=== PATIENT | female | born 1930 | race Caucasian/White ===

== ENCOUNTER 2018-07-10 16:17 | Inpatient (IN) | payer MEDICARE ==
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
[2018-07-10 17:47] LABS: ABS Basophils 0.1 10^3/ul (0-0.2); ABS Eosinophils 0.2 10^3/ul (0-0.6); ABS Lymphocytes 2.3 10^3/ul (1.0-4.8); ABS Monocytes 0.8 10^3/ul (0-0.8); ABS Neutrophils 6.1 10^3/ul (1.5-7.7); ABS Nucleated RBC 0 10^3/ul; Eosinophil % 2.1 %; Hematocrit 38 % (35-47); Hemoglobin 12.8 g/dl (12.0-16.0); Lymphocyte % 24.4 %; Mean Corpuscular HGB Conc 34 g/dl (31-36); Mean Corpuscular Hemoglobin 31 pg (27-31); Mean Corpuscular Volume 91 fL (80-97); Mean Platelet Volume 7.3 fL (7.4-10.4); Nucleated Red Blood Cells % 0; Platelet Count 270 10^3/ul (150-450); Red Blood Count 4.19 10^6/ul (4.00-5.40); Red Cell Distribution Width 13 % (10.5-15); White Blood Count 9.4 10^3/ul (3.5-10.8)
[2018-07-10 18:05] LABS: Albumin 4.1 g/dL (3.2-5.2); Albumin/Globulin Ratio 1.5 (1-3); BUN/Creatinine Ratio 27.2 (8-20); Calcium 9.1 mg/dL (8.6-10.3); EGFR African American 80.7 (>60); EGFR Non-African American 66.7 (>60); Globulin 2.8 g/dL (2-4); Potassium 4.1 mmol/L (3.5-5.0); Total Bilirubin 0.4 mg/dL (0.2-1.0); Total Protein 6.9 g/dL (6.4-8.9)
[2018-07-10 18:06] LABS: Troponin I 0.01 ng/mL (<0.04)
[2018-07-10 18:37] LABS: Urine Appearance Clear; Urine Bilirubin Negative (Negative); Urine Blood Negative (Negative); Urine Color Yellow; Urine Glucose Negative (Negative); Urine Ketones Negative (Negative); Urine Nitrite Negative (Negative); Urine Protein Negative (Negative); Urine Specific Gravity 1.008 (1.010-1.030); Urine Urobilinogen Negative (Negative)
[2018-07-10] MEDS: Meloxicam(NF) 7.5 MG TAB PO ONE (21:42)
--- NOTE | 2018-07-10 21:45 | CONSULT ---
Consult Consult: Orthopedic Surgery Consultation Date: 07/10/2018 Requesting Service: ER Chief Complaint: Left hip pain. History: 87-year-old woman with dementia, who lives at [facility]. She is accompanied by her daughter. Earlier today she sustained a mechanical fall onto her left side. She complained of left hip pain and inability to ambulate, so was brought to the emergency room. She does report some mild left shoulder pain since the fall as well. The pain is located at the left anterior hip and is constant moderate, sharp. Pain worse with hip ROM and lessened when rested. Review of Systems: Negative for fever, recent visual changes, difficulty swallowing, chest pain, shortness of breath, abdominal pain, hematuria, easy bruising, diffuse weakness or lack of coordination, and diffuse rash. PMH: dementia, hyperlipidemia, HTN, ME Medications: aspirin, Ramipril, donepezil, rosuvastatin, memantine Allergies: scallops SH: Lives at [facility] in assisted living. No tobacco or alcohol. FH: non-contributory Physical Examination: Constitutional: Temp Pulse Resp BP Pulse Ox 98.0 F 55 16 159/82 99 07/10/18 16:34 07/10/18 16:34 07/10/18 16:34 07/10/18 16:34 07/10/18 16:34 General appearance is healthy and non-septic in no acute distress. Cardiovascular: Pulse examination demonstrates positive pedal pulses with brisk capillary refill. There are no varicosities. Abdomen: Soft and nontender Lymphatic: No lymphadenopathy appreciated. Skin: Bilateral upper and lower extremity examination demonstrates no ulcerative lesions. Psychiatric / Neurological: Appropriate affect. Alert and oriented to person, place. There is no significant abnormality in coordination appreciated. Normoreflexive deep tendon reflex of the affected extremity. Musculoskeletal: Right upper extremity and lower extremity show full range of motion with no evidence of instability and no tenderness with palpation and 5/5 strength. There is no gross deformity. She is able to range the left shoulder, elbow and wrist but does have some mild pain of the left shoulder. No focal tenderness about the shoulder. No tenderness at the elbow or wrist. She is neurovascularly intact distally in the left upper extremity. At the pelvis she does have some tenderness at the left pubic rami. No pain with hip range of motion. Skin intact. 5/5 motor strength distally with intact sensation to light touch There is no global swelling, edema, or varicosities. No TTP at knee, lower leg, ankle, foot Palpable DP pulse. Flexes and extends ankle and toes. Imaging: X-rays were obtained, and independently interpreted and show left superior and inferior pubic rami fractures. Impression and Plan: Left LC1 pelvic fractures. We discussed the diagnosis and prognosis at length. She can be weightbearing as tolerated with a walker. I would like to obtain new x-rays when she is walking. I would also recommend left shoulder x-rays. Nikunj Porter MD
[2018-07-10] MEDS ORDERED: Ondansetron INJ* 2 MG/ML VIAL IV PRN (23:06)
[2018-07-10] MEDS ORDERED: oxyCODONE TAB* 5 MG TAB PO PRN (23:10)
--- NOTE | 2018-07-11 04:46 | HP ---
CC: Dr. Linda Kothari; Dr. Nikunj Porter * ADMISSION HISTORY AND PHYSICAL: DATE OF ADMISSION: 07/10/18 PRIMARY CARE DOCTOR: Dr. Linda Kothari. MY ATTENDING WHILE IN THE HOSPITAL: Dennis Briceno MD * (DICTATED BY CAMILLE ARREOLA) CONSULTING PHYSICIAN: Nikunj Porter MD CHIEF COMPLAINT: Fall, left groin pain, left shoulder pain. HISTORY OF PRESENT ILLNESS: Ms. William is an 87-year-old female with relatively advanced dementia as well as hypertension and a history of OK, who presents to the emergency department after a mechanical fall on her left side and inability to ambulate, she came in by EMS. She had left shoulder pain and left groin pain , which was worse with movement and not present when patient is not moving. The patient has been in her normal state of health. The patient has no recent changes in her medications. The patient denies dysuria, chest pain, shortness of breath, abdominal pain, diarrhea, dehydration, weight loss, fevers, chills, exposure to people with the flu, cough, and wheezing. 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 Pelvis x- ray was interpreted by Dr. Nikunj Porter as showing left-sided pubic ramus fractures, inferior and superior. Dr. Porter states that patient would be weightbearing as tolerated and recommended shoulder x- rays. Shoulder x-rays were reviewed by this provider and showed no obvious fracture. The patient also had a lower extremity x-ray, which also shows no obvious fracture. Hip/pelvis x-ray shows obvious inferior and superior left pubic ramus fracture. Chest x-ray is unremarkable. We were asked to evaluate the patient for admission due to inability to ambulate and ramus fractures. PAST MEDICAL HISTORY: 1. Dementia. 2. Hypertension. 3. Hyperlipidemia. 4. OK. 5. Mastoiditis as a child. 6. Coronary artery disease. PAST SURGICAL HISTORY: PCI in 2006, and mastoid surgery as a child. MEDICATIONS: 1. Aspirin 81 mg p.o. daily. 2. CoQ10 1 tab p.o. daily. 3. Donepezil 5 mg p.o. daily. 4. Fish oil 1000 mg p.o. daily. 5. Probiotic 1 tab p.o. daily. 6. Ramipril 10 mg p.o. daily. 7. Rosuvastatin 20 mg p.o. daily. 8. Vitamin C 250 mg p.o. daily. 9. Vitamin D 3000 units p.o. daily. 10. Memantine 10 mg p.o. daily. 11. Tylenol 500 mg q.6 hours as needed. ALLERGIES: Scallops, Weeds. FAMILY HISTORY: The patient's father of throat cancer. The patient's mother of stroke. The patient's other sister has dementia and is alive. The patient's sister of colon cancer and a bother of lung cancer. SOCIAL HISTORY: The patient smoked in high school. The patient drank occasional alcohol until years ago. The patient denies illicit drug use. The patient works as a teacher and a barrett. The patient is and has four children. The patient's surrogate decision maker is her daughter, Chel William , who is with her today. REVIEW OF SYSTEMS: Was reviewed with the patient and her daughter and is negative except as above in the HPI. PHYSICAL EXAMINATION GENERAL: The patient is an 87-year-old female who appears her stated age and sitting comfortably in the bed, in no acute distress. VITAL SIGNS: At the time of evaluation, temperature 97.8, pulse rate 59, respiratory rate 20, oxygen saturation 97% on room air, and blood pressure 148/ 66. HEENT: Head: Normocephalic, atraumatic. Sclerae anicteric. No conjunctival injection. Nasal mucosa moist. Oral mucosa moist. No pharyngeal erythema, discharge, or exudate. NECK: Supple, nontender. No lymphadenopathy. No carotid bruits. No JVD. RESPIRATORY: Clear to auscultation bilaterally. No wheezes, rales, or rhonchi. Good air exchange bilaterally. CARDIAC: Regular rate and rhythm. No clicks, murmurs, gallops, or rubs. Pulses are 2+ in the dorsalis pedis, posterior tibialis, and radial areas. ABDOMEN: Soft, nontender, and nondistended. Bowel sounds present and normoactive in all 4 quadrants. No hepatosplenomegaly. No abdominal bruits auscultated. No hepatojugular reflux. MUSCULOSKELETAL: Tenderness to palpation over the left hip and groin. Tenderness to palpation over the scapula of left shoulder. Pain with manipulation of the left lower extremity. Pain with manipulation of the left upper extremity. GENITOURINARY: No suprapubic or CVA tenderness. SKIN: Clean, dry, and intact. No rashes. NEUROLOGIC: Cranial nerves II through XII intact. Alert and oriented only to self. The patient thinks it is 2014, does not know where she is now, does not know who the president is. Sensation and movement intact distal to the injury. PSYCHIATRIC: Very pleasant and cooperative. DIAGNOSTIC STUDIES/LAB DATA: White blood cell count 9.4, hemoglobin 12.8, and platelet count 270. Sodium 138, potassium 4.1, chloride 104, carbon dioxide 29 , anion gap 5, BUN 22, creatinine 0.81, glucose 102. Calcium 9.2, bilirubin 0.4 , AST 25, ALT 24, alkaline phosphatase 60. Troponin I is 0.01. Protein 6.9, albumin 4.1, globulin 2.8. Urine; yellow, clear, pH 8.0, specific gravity 1.008 , otherwise unremarkable. Studies: As above in the HPI plus electrocardiogram shows normal sinus rhythm. No ST segment elevations. No T wave changes. Normal axis. No hypertrophy or enlargement. Brain CT read as postoperative changes of left prior mastoidectomy versus an erosive process involving the left mastoid air cells. There is opacification of left mastoid air cells and possibly also left middle ear cavity, cannot exclude left otomastoiditis. There is age related atrophy with cerebellar volume loss and chronic microvascular ischemic change and no acute intracranial pathology. ASSESSMENT AND PLAN: Impression: Ms. William is an 87-year-old female with past medical history significant for dementia, hypertension, myocardial infarction, who had a mechanical fall today with left pubic superior and inferior ramus fractures and will be admitted to the hospital for physical therapy, occupational therapy, pain control, Orthopedic consultation, and likely rehab placement. 1. Left superior and inferior ramus fractures. The patient can be weightbearing as tolerated per Orthopedics. The patient is currently limited by pain. The patient's pain will be treated with oxycodone and Tylenol. The patient will have physical therapy and occupational therapy. The patient will likely need rehab placement before returning to independent living. The patient is in relatively good health and has high rehab potential. 2. Hypertension. The patient is currently normotensive. Continue the patient' s ramipril. 3. History of coronary artery disease. Continue patient's aspirin and rosuvastatin. 4. Dementia. Continue patient's memantine, donepezil and supportive care. Avoid excessive doses of psychoactive medications. 5. History of mastoiditis. The patient's mastoid abnormalities are likely related to her mastoid surgery as a child. 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 No antibiotics or further assessment is indicated. 6. DVT prophylaxis: SCDs in the setting of pelvic fracture as the patient moves further away from her trauma. Heparin subcu may be indicated. 7. FEN: The patient will have a heart-healthy diet without caffeine and no fluids are indicated. TIME SPENT: Approximately 60 minutes was spent on the admission of this patient , 30 of which was spent [id number] with the patient obtaining history and physical and discussing treatment plan. Plan was discussed with my attending Dr. Anthony Briceno and he is in agreement. CAMILLE ARREOLA [id number]/[facility] #: [id number] MTDKip
[2018-07-11 06:45] LABS: ABS Basophils 0 10^3/ul (0-0.2); ABS Eosinophils 0.1 10^3/ul (0-0.6); ABS Lymphocytes 1.6 10^3/ul (1.0-4.8); ABS Monocytes 0.9 10^3/ul (0-0.8); ABS Neutrophils 7.9 10^3/ul (1.5-7.7); ABS Nucleated RBC 0 10^3/ul; Eosinophil % 0.6 %; Hematocrit 36 % (35-47); Hemoglobin 12.2 g/dl (12.0-16.0); Mean Corpuscular HGB Conc 34 g/dl (31-36); Mean Corpuscular Hemoglobin 30 pg (27-31); Mean Corpuscular Volume 90 fL (80-97); Mean Platelet Volume 7.6 fL (7.4-10.4); Nucleated Red Blood Cells % 0; Platelet Count 240 10^3/ul (150-450); Red Blood Count 4.01 10^6/ul (4.00-5.40); Red Cell Distribution Width 13 % (10.5-15); White Blood Count 10.5 10^3/ul (3.5-10.8)
[2018-07-11 07:04] LABS: BUN/Creatinine Ratio 29.3 (8-20); Calcium 8.7 mg/dL (8.6-10.3); EGFR African American 118.7 (>60); EGFR Non-African American 98.1 (>60); Magnesium 2.1 mg/dL (1.9-2.7); Potassium 3.6 mmol/L (3.5-5.0)
[2018-07-11] MEDS: Cholecalciferol TAB* 1000 UNITS PO SCH (08:40)
[2018-07-11] MEDS: Atorvastatin* 40 MG TAB PO SCH (08:41)
[2018-07-11] MEDS: Memantine TAB* 10 MG PO SCH ×2 (08:41→19:47)
[2018-07-11] MEDS: Acetaminophen TAB* 325 MG PO PRN ×2 (08:43→19:47)
[2018-07-11] MEDS: Ramipril CAP* 10 MG PO SCH (08:43)
[2018-07-11] MEDS: Donepezil TAB* 5 MG PO SCH (08:43)
[2018-07-11] MEDS: Aspirin EC TAB* 81 MG TAB.EC PO SCH (08:44)
--- NOTE | 2018-07-11 13:50 | PN ---
Progress Note - Progress Note Date of Service: 07/11/18 SOAP: Subjective: [] Patient seen and examined OOB in chair with family present. She has no pain and no other complaints. She was stood and pivot, does not recall any pain. Per her family, her short term memory is very poor. Denies CP,SOB, dizziness, nausea. Objective: []General:Well appearing, NAD LLE: skin envelope intact, able to flex and extend at hip,knee,ankle without pain. BL UE: nontender to palpation, .aAble to forward flex BL upper extremities above her head without pain. Assessment: []left superior and inferior pubic rami fractures. Diagnostic studies:Left shoulder xray: Negative for fracture. Normal acromioclavicular and glenohumeral joint alignment. 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 Negative for calcific tendinopathy.Unremarkable soft tissue contours. Plan: []BL LE: weightbearing as tolerated with a walker. Needs new pelvis x-rays when she is walking. UE: WBAT
--- NOTE | 2018-07-11 14:25 | PN ---
Subjective Date of Service: 07/11/18 Interval History: Pt in room accompanied by 2 daughters. She is confused at times, so daughters fill in information. Pt had an unwitnessed fall which resulted in L pubic ramus fracture. She does not remember the fall. Currently, she denies pain. Daughters say that pt c/o pain when standing and transferring to commode and state that pt tends to favor the L leg. Pt denies CP, cough, SOB, fever, abd pain, pain in calves. Objective Active Medications: Acetaminophen (Tylenol Tab*) 650 mg PO Q6H PRN Aspirin (Aspirin Ec Tab*) 81 mg PO DAILY CHIKI Atorvastatin Calcium (Lipitor*) 40 mg PO DAILY CHIKI Cholecalciferol (Vitamin D Tab*) 2,000 units PO DAILY CHIKI Donepezil HCl (Aricept Tab*) 5 mg PO DAILY CHIKI Meloxicam (Mobic(Nf)) 15 mg PO ONCE ONE Memantine (Namenda Tab*) 10 mg PO BID CHIKI Ondansetron HCl (Zofran Inj*) 4 mg IV Q6H PRN Oxycodone HCl (Roxycodone Tab*) 5 mg PO Q6H PRN Ramipril (Altace Cap*) 10 mg PO DAILY CHIKI Vital Signs: Temp Pulse Resp BP Pulse Ox 97.7 F 77 18 145/59 94 07/11/18 11:27 07/11/18 11:27 07/11/18 11:27 07/11/18 11:27 07/11/18 11:27 Oxygen Devices in Use Now: None Appearance: Pt is sitting in chair with LE elevated. She is in no acute distress and appears comfortable. Eyes: No Scleral Icterus, PERRLA Ears/Nose/Mouth/Throat: NL Teeth, Lips, Gums, Clear Oropharnyx, Mucous Membranes Moist Neck: NL Appearance and Movements; NL JVP, Trachea Midline Respiratory: Symmetrical Chest Expansion and Respiratory Effort, Clear to Auscultation Cardiovascular: NL Sounds; No Murmurs; No JVD, RRR, No Edema Abdominal: NL Sounds; No Tenderness; No Distention, No Hepatosplenomegaly Extremities: No Edema, No Clubbing, Cyanosis, - - Pt able to move b/l UE; pt able to move b/l LE: int/ext rotation, hip and knee flexion/extension. Neurological: - - Alert, oriented to self and place Result Diagrams: 07/11/18 06:26 07/11/18 06:26 Microbiology and Other Data: Microbiology 07/11/18 01:13 Nasal Screen MRSA (PCR) - Final Nasal Mrsa Not Detected Assess/Plan/Problems-Billing Assessment: Pt is 87yof with PMHx HTN, CAD, dementia who presents with L superior and inferior pubic ramus fracture. - Patient Problems (1) Fracture of left pelvis Comment: -Ortho consulted, thank you for receommendations -LE: WBAT with wheelchair, new pelvis x-ray after pt walking -Continue pain control (2) Hypertension Comment: -Elevated this morning, but trending downward, ? due to pain -Continue Ramipril -Continue to monitor over next 24h for need for med adjustment (3) Coronary artery disease Comment: -Continue statin, asa (4) Dementia Comment: -Stable -Continue memantine, donepezil (5) DVT prophylaxis Comment: -Recent fall -SCDs Status and Disposition: Inpatient. Discharge when stable.
[2018-07-11] MEDS: Meloxicam(NF) 7.5 MG TAB PO ONE (19:22)
[2018-07-12] MEDS: Acetaminophen TAB* 325 MG PO PRN ×3 (03:47→19:43)
[2018-07-12] MEDS: Ramipril CAP* 10 MG PO SCH (10:25)
[2018-07-12] MEDS: Aspirin EC TAB* 81 MG TAB.EC PO SCH (10:25)
[2018-07-12] MEDS: Donepezil TAB* 5 MG PO SCH (10:25)
[2018-07-12] MEDS: Atorvastatin* 40 MG TAB PO SCH (10:25)
[2018-07-12] MEDS: Memantine TAB* 10 MG PO SCH ×2 (10:25→19:43)
[2018-07-12] MEDS: Cholecalciferol TAB* 1000 UNITS PO SCH (10:25)
--- NOTE | 2018-07-12 13:49 | PN ---
Progress Note - Progress Note Date of Service: 07/12/18 SOAP: Subjective: []Patient seen at bedside. She does not remember meeting me nor that she has pubic rami fractures. Denies any pain currently. Per family she has not been complaining of pain. Denies CP, SOB, dizziness, nausea currently. Objective: [] General:Well appearing, NAD LLE: skin envelope intact, thigh is soft, able to flex and extend at hip,knee, ankle without pain. Sensation intact to light touch distally, Dp2+. BL UE: nontender to palpation, qble to forward flex BL upper extremities above her head without pain. Assessment: []left superior and inferior pubic rami fractures. Plan: []BL LE: weightbearing as tolerated with a walker. Needs new pelvis x-rays when she is walking. Ordered for tomorrow UE: WBAT
[2018-07-12] MEDS: Ibuprofen TAB* 600 MG PO PRN (15:58)
[2018-07-12] MEDS ORDERED: NS 0.9% 1000 ML** 1,000 ML IV SCH (16:15)
--- NOTE | 2018-07-12 18:53 | PN ---
Subjective Date of Service: 07/12/18 Interval History: Pt states that she has no pain at the moment. She states she has no pain with ambulation, but daughters note that she does have pain with standing and ambulation; pt is confused at times. She is eating and drinking well and is in good spirits. Pt states her last BM was yesterday. She denies CP, SOB, cough, fever, abd pain, n/v/d, pain in calves. Objective Active Medications: Acetaminophen (Tylenol Tab*) 650 mg PO Q6H PRN Aspirin (Aspirin Ec Tab*) 81 mg PO DAILY [facility] Atorvastatin Calcium (Lipitor*) 40 mg PO DAILY [facility] Cholecalciferol (Vitamin D Tab*) 2,000 units PO DAILY [facility] Donepezil HCl (Aricept Tab*) 5 mg PO DAILY [facility] Sodium Chloride (Ns 0.9% 1000 Ml) 1,000 mls @ 75 mls/hr IV PER RATE [facility] Ibuprofen (Motrin Tab*) 600 mg PO Q6H PRN Memantine (Namenda Tab*) 10 mg PO BID [facility] Ondansetron HCl (Zofran Inj*) 4 mg IV Q6H PRN Oxycodone HCl (Roxycodone Tab*) 5 mg PO Q6H PRN Ramipril (Altace Cap*) 10 mg PO DAILY [facility] Vital Signs: Temp Pulse Resp BP Pulse Ox 97.7 F 55 14 143/58 96 07/12/18 12:43 07/12/18 12:43 07/12/18 12:43 07/12/18 12:43 07/12/18 12:43 Oxygen Devices in Use Now: None Appearance: Pt is sitting up in bed eating lunch. She is in no acute distress and appears well. Ears/Nose/Mouth/Throat: NL Teeth, Lips, Gums, Clear Oropharnyx, Mucous Membranes Moist Neck: NL Appearance and Movements; NL JVP, Trachea Midline Respiratory: Symmetrical Chest Expansion and Respiratory Effort, Clear to Auscultation Cardiovascular: NL Sounds; No Murmurs; No JVD, RRR, No Edema Abdominal: NL Sounds; No Tenderness; No Distention, No Hepatosplenomegaly Extremities: No Edema, No Clubbing, Cyanosis, - - Pt moves all extremities without difficulty or pain; radial and pedal pulses palpable Neurological: - - Alert; oriented to self, place Result Diagrams: 07/11/18 06:26 07/11/18 06:26 Microbiology and Other Data: Microbiology 07/11/18 01:13 Nasal Screen MRSA (PCR) - Final Nasal Mrsa Not Detected Assess/Plan/Problems-Billing Assessment: Pt is 87yof with PMHx HTN, CAD, dementia who presents with L superior and inferior pubic ramus fracture. - Patient Problems (1) Fracture of left pelvis Comment: -Ortho consulted, thank you for recommendations -LE: WBAT with wheelchair, new pelvis x-ray scheduled for tomorrow -Continue pain control (2) Hypertension Comment: -Elevated this morning, but trending downward, ? due to pain -Continue Ramipril -Continue to monitor over next 24h for need for med adjustment (3) Coronary artery disease Comment: -Continue statin, asa (4) Dementia Comment: -Stable -Continue memantine, donepezil (5) DVT prophylaxis Comment: -Recent fall -SCDs Status and Disposition: Inpatient. Discharge when stable.
[2018-07-13] MEDS: Ibuprofen TAB* 600 MG PO PRN ×2 (03:27→13:03)
[2018-07-13 07:03] LABS: Hematocrit 35 % (35-47); Mean Corpuscular HGB Conc 34 g/dl (31-36); Mean Corpuscular Hemoglobin 31 pg (27-31); Mean Corpuscular Volume 90 fL (80-97); Mean Platelet Volume 7.4 fL (7.4-10.4); Platelet Count 214 10^3/ul (150-450); Red Blood Count 3.91 10^6/ul (4.00-5.40); Red Cell Distribution Width 13 % (10.5-15); White Blood Count 9.5 10^3/ul (3.5-10.8)
[2018-07-13 07:23] LABS: BUN/Creatinine Ratio 28.6 (8-20); Calcium 8.5 mg/dL (8.6-10.3); EGFR African American 107.9 (>60); EGFR Non-African American 89.2 (>60); Potassium 3.9 mmol/L (3.5-5.0)
[2018-07-13] MEDS ORDERED: NS 0.9% 1000 ML** 1,000 ML IV SCH ×2 (08:00→09:00)
[2018-07-13] MEDS ORDERED: Metoprolol Tartrate TAB* 25 MG PO SCH (09:00)
[2018-07-13] MEDS: Memantine TAB* 10 MG PO SCH ×2 (09:11→20:14)
[2018-07-13] MEDS: Aspirin EC TAB* 81 MG TAB.EC PO SCH (09:11)
[2018-07-13] MEDS: Cholecalciferol TAB* 1000 UNITS PO SCH (09:11)
[2018-07-13] MEDS: Atorvastatin* 40 MG TAB PO SCH (09:11)
[2018-07-13] MEDS: Donepezil TAB* 5 MG PO SCH (09:11)
[2018-07-13] MEDS: Ramipril CAP* 10 MG PO SCH (09:11)
--- NOTE | 2018-07-13 11:40 | PN ---
Progress Note - Progress Note Date of Service: 07/13/18 SOAP: Subjective: []Pt seen at bedside. She has no pain at rest, has pain with ambulation but does not remember. Objective: []General:Well appearing, NAD LLE: skin envelope intact, thigh is soft, able to flex and extend at hip,knee, ankle without pain. Negative log roll at hip. Sensation intact to light touch distally, Dp2+. Assessment: []left superior and inferior pubic rami fractures. Plan: []BL LE: weightbearing as tolerated with a walker. Needs new pelvis x-rays now that she is ambulating. Ordered for today, anticipate DC tomorrow morning
--- NOTE | 2018-07-13 16:18 | PN ---
Subjective Date of Service: 07/13/18 Interval History: Pt is doing well. She states she does not have any pain, although her daughter reports that she does have pain with ambulation. Daughter states that she has been working with PT and has been progressing with exercises, including doing leg lifts, but still shuffles to commode, due to pain. She also believes that alternating Tylenol and Ibu has provided better pain control. Pt is doing well , otherwise, stating that she has no CP, SOB, fever, cough, abd pain, calf pain. She had BM yesterday and is urinating well. Objective Active Medications: Acetaminophen (Tylenol Tab*) 650 mg PO Q6H PRN Aspirin (Aspirin Ec Tab*) 81 mg PO DAILY [facility] Atorvastatin Calcium (Lipitor*) 40 mg PO DAILY [facility] Cholecalciferol (Vitamin D Tab*) 2,000 units PO DAILY [facility] Donepezil HCl (Aricept Tab*) 5 mg PO DAILY [facility] Sodium Chloride (Ns 0.9% 1000 Ml) 1,000 mls @ 75 mls/hr IV PER RATE [facility] Ibuprofen (Motrin Tab*) 600 mg PO Q6H PRN Memantine (Namenda Tab*) 10 mg PO BID [facility] Ondansetron HCl (Zofran Inj*) 4 mg IV Q6H PRN Oxycodone HCl (Roxycodone Tab*) 5 mg PO Q6H PRN Ramipril (Altace Cap*) 10 mg PO DAILY [facility] Vital Signs: Temp Pulse Resp BP Pulse Ox 98.2 F 60 18 122/50 96 07/13/18 14:18 07/13/18 14:18 07/13/18 15:31 07/13/18 14:18 07/13/18 14:18 Oxygen Devices in Use Now: None Appearance: Pt is sitting in chair with LE elevated. She appears comfortable and in no acute distress. Eyes: No Scleral Icterus, PERRLA Ears/Nose/Mouth/Throat: NL Teeth, Lips, Gums, Clear Oropharnyx, Mucous Membranes Moist Neck: NL Appearance and Movements; NL JVP, Trachea Midline Respiratory: Symmetrical Chest Expansion and Respiratory Effort, Clear to Auscultation Cardiovascular: NL Sounds; No Murmurs; No JVD, RRR, No Edema Abdominal: NL Sounds; No Tenderness; No Distention, No Hepatosplenomegaly Lymphatic: No Cervical Adenopathy Extremities: No Edema, No Clubbing, Cyanosis, - - B/l LE with intact sensation, movement; pedal pulses palpable Neurological: NL Sensation, - - A/O to self, place Result Diagrams: 07/13/18 06:53 07/13/18 06:53 Microbiology and Other Data: Microbiology 07/11/18 01:13 Nasal Screen MRSA (PCR) - Final Nasal Mrsa Not Detected Assess/Plan/Problems-Billing Assessment: Pt is 87yof with PMHx HTN, CAD, dementia who presents with L superior and inferior pubic ramus fracture. - Patient Problems (1) Fracture of left pelvis Comment: -Ortho consulted, thank you for recommendations -LE: WBAT with wheelchair. Pelvis x-ray complete -Continue pain control (2) Hypertension Comment: -BP trending down -Continue Ramipril (3) Coronary artery disease Comment: -Continue statin, asa (4) Dementia Comment: -Stable -Continue memantine, donepezil (5) DVT prophylaxis Comment: -Recent fall -SCDs Status and Disposition: Inpatient. Likely discharge to [facility] tomorrow.
[2018-07-13] MEDS: Acetaminophen TAB* 325 MG PO PRN (20:14)
[2018-07-14] MEDS: Atorvastatin* 40 MG TAB PO SCH (07:49)
[2018-07-14] MEDS: Ramipril CAP* 10 MG PO SCH (07:49)
[2018-07-14] MEDS: Memantine TAB* 10 MG PO SCH (07:49)
[2018-07-14] MEDS: Aspirin EC TAB* 81 MG TAB.EC PO SCH (07:49)
[2018-07-14] MEDS: Donepezil TAB* 5 MG PO SCH (07:49)
[2018-07-14] MEDS: Cholecalciferol TAB* 1000 UNITS PO SCH (07:49)
[2018-07-14] MEDS: Acetaminophen TAB* 325 MG PO PRN (07:57)
--- NOTE | 2018-07-14 12:00 | DS ---
AMENDED REPORT NOW INCLUDES DESIGNATED COSIGNER CC: Dr. Linda Kothari;[facility] * DISCHARGE SUMMARY: DATE OF ADMISSION: 07/10/18. DATE OF DISCHARGE: 07/14/18. PRIMARY CARE PROVIDER: Dr. Linda Kothari. OTHER OUTPATIENT PROVIDER: Providers at [facility]. ATTENDING PHYSICIAN: Dr. Denisse Medina* (dictated by John Vargas, CLAUDINE) PRIMARY DIAGNOSES: 1. Left superior and inferior pubic rami fracture. 2. Hypertension. 3. Coronary artery disease. 4. Dementia. SECONDARY DIAGNOSES: 1. Hyperlipidemia. 2. Myocardial infarction. 3. Mastoiditis as a child. CONSULTATIONS WHILE IN THE HOSPITAL: Dr. Porter from [facility]. PROCEDURE WHILE IN THE HOSPITAL: No procedures. STUDIES WHILE IN THE HOSPITAL: 1. Chest x-ray: Impression: Stigmata of chronic obstructive pulmonary disease. No evidence of acute intrathoracic disease. 2. Brain CT: Impression: There may be postoperative changes of parietal left mastoidectomy versus an erosive process involving the left mastoid air cells. There is calcification of the left mastoid air cells and possibly also involving the left middle ear cavity. Cannot exclude left otomastoiditis. There is age- related diffuse cerebral and cerebellar volume loss and chronic microvascular ischemic disease. No acute intracranial pathology. 3. Hip/pelvis x-ray: Impression: No fracture of left proximal humerus evident. Mildly comminuted and impacted left superior pubic ramus fracture anteriorly at the junction with the os pubis. Associated grossly nondisplaced fracture of the left inferior pubic ramus. No visible sacral fracture. However , this remains a concern given the presence of left anterior pelvic fracture. Consider a CT for further assessment. 4. Lower extremity x-ray: Impression: Negative for fracture lucency. Osteophytosis of knee. Unremarkable soft tissue contours. 5. Shoulder x-ray: Impression: No radiographic evidence of traumatic left shoulder injury. 6. Pelvic CT: Impression: Comminuted nondisplaced fracture of the left superior and inferior pubic rami. Nondisplaced fracture of the lateral aspect of the sacrum, left-sided. Small pelvic hematoma. 7. Repeat pelvis x-ray: Impression: Fracture of the left superior and inferior pubic rami similar to that identified on 07/10/18. DISCHARGE HOME MEDICATIONS: New home medications: 1. Tylenol 650 mg p.o. q.6 hours p.r.n. 2. Ibuprofen 600 mg p.o. q.6 hours p.r.n. Continued home medications: 1. Namenda 10 mg p.o. b.i.d. 2. Rosuvastatin 20 mg p.o. b.i.d. 3. Ramipril 10 mg p.o. daily. 4. Aricept 5 mg p.o. daily. 5. Aspirin 81 mg p.o. daily. Discontinued home medication: Mobic 15 mg p.o. daily. HISTORY OF PRESENT ILLNESS/HOSPITAL COURSE: Ms. William is an 87-year-old female who presented to the emergency department on 07/10/18 after a mechanical fall to her left side and inability to ambulate. Please see the history and physical dictated by CAMILLE Mcbride, for complete summary of events leading up to this hospitalization. But in short, patient had a mechanical fall and presented to the emergency room via EMS due to left shoulder pain and left groin pain, which was worse with movement. While in the emergency room, imaging revealed inferior and superior left pubic ramus fractures. We were asked to evaluate the patient for admission due to inability to ambulate and rami fractures. While in the emergency room, Ortho, Dr. Porter who consulted , stated that the patient would be weightbearing as tolerated and recommended a shoulder x-ray due to reported pain as noted above. Patient was admitted to the medical floor for further evaluation and treatment. During this hospital stay, patient had been managing pain well with a combination of Tylenol and ibuprofen. The patient has not required oxycodone or any narcotics since her presentation in the emergency department. The patient has been working with Physical Therapy and Occupational Therapy who recommended rehab placement before returning to the present living given her current state. Ortho team also followed along the patient while she was admitted. After the patient was ambulated, images were repeated to assess for stability and the stability was noted. It should be known that the patient was mildly hypertensive during her admission , but had been trending down. Patient to continue her home dose of ramipril. The patient is stable for discharge to [facility]. Vital Signs: Temp 98.1, HR 52, RR 16, O2 saturation 95% on room air, BP 165/59. REVIEW OF SYSTEMS: The patient denies pain except with movement. Patient denies dizziness, chest pain, palpitations, shortness of breath, cough, abdominal pain, nausea, vomiting, diarrhea, weakness. A 14-point of review of systems completed and all others were negative. PHYSICAL EXAMINATION: General: Ms. William is an 87-year-old female who is sitting in bed, appears to be in no acute distress, appears stated age. HEENT: EOMs intact. PERRLA. Oral mucosa is moist without lesion. Posterior pharynx is clear. Neck: Supple. No lymphadenopathy. Cardiac: S1 and S2 present. No murmurs, rubs, or gallops. Regular rate and rhythm. Respiratory: Lungs are clear. No wheezes, rhonchi or rales. Good aeration. Abdomen: Soft, nontender. Bowel sounds x4. Extremities: No edema. No pain or deformities. No clubbing or cyanosis. Skin: Intact. Neuro: Patient is alert to self. Patient has a history of dementia. No focal deficits or weakness noted. LABORATORY DATA: WBC 9.5, hemoglobin 12, hematocrit 35, platelet 214. Sodium 135, potassium 3.9, chloride 102, carbon dioxide 26, BUN 18, creatinine 0.63. DISCHARGE PLAN/FOLLOWUP: 1. Left superior and inferior pubic rami fracture: Patient will be discharged to [facility] for subacute rehab. Per Ortho patient is to continue weightbearing as tolerated with a wheelchair. As mentioned in the HPI, pain is controlled currently with Tylenol and ibuprofen. Patient has not needed narcotics. 2. Hypertension: Patient's BP is trending down; therefore, patient to continue home dose of ramipril. I would encourage patient's blood pressure to be monitored routinely and evaluation for increase in ramipril as needed. Given patient's advanced age and current injury, I will not be increasing her ramipril at this time. I would encourage followup with her primary care physician. 3. Coronary artery disease/history of NE: Continue statin and aspirin. 4. Dementia: Stable. Family at bedside report she is at her baseline. Continue Namenda and Aricept. 5. Hyperlipidemia: Continue statin. 6. Mastoiditis as a child: The patient's hearing abnormalities are likely related to her mastoid surgery as a child. 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 Patient can follow with primary care as needed. FOLLOWUP: As mentioned above, patient to follow up with her primary care regarding blood pressure and any new or worsening symptoms. This is a summarized report of a complex medical history and hospital stay. For further details, please see entire medical record. TIME SPENT: Approximately 35 minutes was spent on this discharge, greater than half the time was spent [id number] with the patient discussing discharge plan and instructions. This plan was discussed with my attending Dr. Denisse Medina who agrees with my plan. JOHN VARGAS, CLAUDINE [id number]/CPS #: [id number] PRECIOUS
[2018-07-14 12:09] VITALS: BP 158/53
== END 2018-07-14 13:20 | DRG 536 ==
LOC: SUPCPDRO 16:17 → ED 16:17 → MED 07-11 00:35
PROVIDERS: ADMIT Student in an Organized Health Care Education/Training Program; ATTEND Internal Medicine
DX: S32.592A Other specified fracture of left pubis, initial encounter for closed fracture (principal); S32.10XA Unspecified fracture of sacrum, initial encounter for closed fracture; I10 Essential (primary) hypertension; F03.90 Unspecified dementia, unspecified severity, without behavioral disturbance, psychotic disturbance, mood disturbance, and anxiety; E78.5 Hyperlipidemia, unspecified; I25.10 Atherosclerotic heart disease of native coronary artery without angina pectoris; M19.012 Primary osteoarthritis, left shoulder; W17.89XA Other fall from one level to another, initial encounter; M25.762 Osteophyte, left knee; Y92.009 Unspecified place in unspecified non-institutional (private) residence as the place of occurrence of the external cause; Z82.3 Family history of stroke; I25.2 Old myocardial infarction; Z91.018 Allergy to other foods; Z80.0 Family history of malignant neoplasm of digestive organs; Z80.1 Family history of malignant neoplasm of trachea, bronchus and lung; Z80.8 Family history of malignant neoplasm of other organs or systems; Z82.0 Family history of epilepsy and other diseases of the nervous system; Z79.82 Long term (current) use of aspirin
CPT/HCPCS: 36415; 70450; 71045; 72170; 72192; 80048; 80053; 81003; 83735; 84484; 85025; 85027; 87641; 93005; 99284; A9270-GY; G8978-GP-CL; G8979-GP-CI; G8987-GO-CL; G8988-GO-CJ

== ENCOUNTER 2019-01-24 12:05 | Emergency (ER) | payer MEDICARE ==
--- NOTE | 2019-01-24 13:02 | ED ---
Hypertension - HPI Summary HPI Summary: This patient is an 88 year old F presenting to ED with a chief complaint of intermittently elevated BP spikes since 01/19/19. Patient feels woozy, disoriented, and confused when this occurs. Per daughter, the patients face gets flushed, which is not normal. She also has abdominal discomfort. The patient also reports feeling hypersensitive to her hands and feet. Patient was referred to ED by Dr. Kothari, who prescribed amlodipine. Patient takes 10mg ramipril. The patient rates the pain 0/10 in severity. Symptoms aggravated by nothing. Symptoms alleviated by nothing. Patient denies headaches, chest pain, palpitations, shortness of breath. - History of Current Complaint Chief Complaint: EDHypertension Stated Complaint: HIGH BP PER FAMILY Time Seen by Provider: 01/24/19 12:47 Hx Obtained From: Patient, Family/[employer] - Daughter Onset/Duration: Started Days Ago - 01/18/19 Timing: Intermittent Aggravating Factor(s): Nothing Alleviating Factor(s): Nothing Associated Signs & Symptoms: Negative - headaches, chest pain, palpitations, shortness of breath - Allergies/Home Medications Allergies/Adverse Reactions: Allergies Allergy/AdvReac Type Severity Reaction Status Date / Time scallops Allergy Rash Verified 01/24/19 12:09 Home Medications: Home Medications Acetaminophen [Acetaminophen Extra Strength] 500 mg PO TID PRN 01/24/19 [ History Confirmed 01/24/19] Ascorbic Acid TAB* [Vitamin C TAB*] 250 mg PO DAILY 01/24/19 [History Confirmed 01/24/19] Cholecalciferol (Vitamin D3) [Vitamin D3] 1,000 unit PO QAM 01/24/19 [History Confirmed 01/24/19] Cholecalciferol TAB* [Vitamin D TAB*] 2,000 units PO QPM 01/24/19 [History Confirmed 01/24/19] Fluoride (Sodium) [Sf 5000 Plus] 1.1 % PO BID 01/24/19 [History Confirmed ] L.acidoph,Paracasei, B.lactis [Probiotic] 1 cap PO NICOLAS 01/24/19 [History Confirmed 01/24/19] Memantine TAB* [Namenda TAB*] 10 mg PO BID 01/24/19 [History Confirmed 01/24/19] Perry-3S/Dha/Epa/Fish Oil [Fish Oil 1,200 mg Softgel] 1 cap PO DAILY 01/24/19 [ History Confirmed 01/24/19] Rosuvastatin (NF) [Crestor (NF)] 20 mg PO QPM 01/24/19 [History Confirmed ] Ubidecarenone [Co Q-10] 100 mg PO DAILY 01/24/19 [History Confirmed 01/24/19] amLODIPine TAB* [Norvasc 5 mg TAB*] 2.5 mg PO DAILY 01/24/19 [History Confirmed 01/24/19] PMH/Surg Hx/FS Hx/Imm Hx Cardiovascular History: Reports: Hx Hypercholesterolemia, Hx Hypertension, Hx Myocardial Infarction, Other Cardiovascular Problems/Disorders - implanted heart monitor Musculoskeletal History: Reports: Other Musculoskeletal History - pelvic fx Denies: Hx Osteoporosis Sensory History: Reports: Hx Contacts or Glasses, Hx Hearing Aid - RIGHT EAR Denies: Hx Legally Blind, Hx Deafness Opthamlomology History: Reports: Hx Contacts or Glasses Denies: Hx Legally Blind Neurological History: Reports: Hx Dementia, Other Neuro Impairments/Disorders - Surgical History Surgery Procedure, Year, and Place: 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 Infectious Disease History: No Infectious Disease History: Denies: Traveled Outside the [place] in Last 30 Days - Family History Known Family History: Positive: Other - throat cancer, stroke, dementia, colon cancer, lung cancer Negative: Blood Disorder - Social History Alcohol Use: None Hx Substance Use: No Substance Use Type: Reports: None Hx Tobacco Use: No Smoking Status (MU): Never Smoked Tobacco Review of Systems Negative: Palpitations, Chest Pain Negative: Shortness Of Breath Neurological: Other - "woozy", disoriented, confused Negative: Headache All Other Systems Reviewed And Are Negative: Yes Physical Exam - Summary Physical Exam Summary: VITAL SIGNS: Reviewed. GENERAL: Patient is a well-developed and nourished female who is lying comfortable in the stretcher. Patient is not in any acute respiratory distress. HEAD AND FACE: No signs of trauma. No ecchymosis, hematomas or skull depressions. No sinus tenderness. EYES: PERRLA, EOMI x 2, No injected conjunctiva, no nystagmus. EARS: Hearing grossly intact. Ear canals and tympanic membranes are within normal limits. MOUTH: Oropharynx within normal limits. NECK: Supple, trachea is midline, no adenopathy, no JVD, no carotid bruit, no c- spine tenderness, neck with full ROM. CHEST: Symmetric, no tenderness at palpation. LUNGS: Clear to auscultation bilaterally. No wheezing or crackles. CVS: Regular rate and rhythm, S1 and S2 present, no murmurs or gallops appreciated. ABDOMEN: Soft, non-tender. No signs of distention. No rebound, no guarding, and no masses palpated. Bowel sounds are normal. EXTREMITIES: FROM in all major joints, no edema, no cyanosis or clubbing. NEURO: Alert and oriented x 3. No acute neurological deficits. Speech is normal and follows commands. SKIN: Dry and warm. GCS: 15 Triage Information Reviewed: Yes Vital Signs On Initial Exam: Initial Vitals Temp Pulse Resp BP Pulse Ox 98.0 F 58 14 154/75 96 01/24/19 12:07 01/24/19 12:07 01/24/19 12:07 01/24/19 12:07 01/24/19 12:07 Vital Signs Reviewed: Yes Diagnostics - Vital Signs Vital Signs Temp Pulse Resp BP Pulse Ox 01/24/19 12:07 98.0 F 58 14 154/75 96 - Laboratory Result Diagrams: 01/24/19 13:12 01/24/19 13:12 Lab Statement: Any lab studies that have been ordered have been reviewed, and results considered in the medical decision making process. - Radiology CXR Radiology Interpretation Completed By: Radiologist Summary of Radiographic Findings: NO ACTIVE CARDIOPULMONARY DISEASE. Dr. Garcia has reviewed this radiology report. Abdomen Radiology Interpretation Completed By: Radiologist Summary of Radiographic Findings: #. Normal bowel gas pattern with moderate volume of stool present throughout the colon. Negative for significant rectal distention with stool. Dr. Garcia has reviewed this radiology report. - CT Brain CT Interpretation Completed By: Radiologist Summary of CT Findings: 1. NO ACUTE INTRACRANIAL PATHOLOGY. 2. DIFFUSE INVOLUTIONAL CHANGE WITH DISPROPORTIONATE VOLUME LOSS INVOLVING THE MEDIAL TEMPORAL LOBES BILATERALLY, WHICH CAN BE ASSOCIATED WITH CERTAIN TYPES OF DEMENTIA IN THE CORRECT SETTING. Dr. Garcia has reviewed this radiology report. - EKG 1256 Cardiac Rate: Bradycardia - 52 BPM EKG Rhythm: Sinus Bradycardia Summary of EKG Findings: Sinus bradycardia at 52 BPM, Q waves in leads II, III, and aVF. ST elevation less than 1mm in II and aVF, similar to EKG done on . Patient does not report chest pain. Dr. Garcia has reviewed and interpreted this EKG. Re-Evaluation - Re-Evaluation First Eval Re-Evaluation Time: 15:55 Comment: Discussed results with patient and Dr. Kothari's suggestions. Hypertension Course/Dx - Course Assessment/Plan: This patient is an 88-year-old female who presents to the emergency department with daughter with a chief complaint of having fluctuating blood pressures. The daughter reports that the blood pressure has been fluctuating between high and normal blood pressures for the last couple weeks. She also reports that whenever the blood pressure is high the patient becomes flushed and the patient reports that she is not feeling well. She has seen in the primary care physician Dr. Kothari yesterday who added amlodipine for the patient. However the patient's daughter decided to bring the patient to the emergency department for further assessment. The patient at the ED is not having any Complaints. Blood work without any significant abnormality except for glucose of 106. Urinalysis is negative for UTI. I decided to do a head CT since the patient was complaining that she has generalized weakness. Head CT impression: No acute interconnected pathology. Diffuse involutional change with disproportionate volume loss involving the medial temporal lobes bilaterally which can be associated with certain dementia in the correct setting. Abdominal x-ray impression: Normal bowel gas pattern with moderate volume of stool present throughout the colon. Negative for significant rectal distention with stool. I discussed the case with Dr. Kothari and she agrees for the patient to be discharged home follow-up with her office. Continue with blood pressure medications. I discussed all the findings and test results with the patient and her daughter. Patient was instructed to return to the emergency room immediately if any of the symptoms return or worsen. Plan of care was discussed with the patient and understands and agrees. All questions were answered at patient satisfaction. There were no further complaints or concerns. Lung exam before discharge: CTA B/L. Good air exchange. No wheezing or crackles heard. CVS: S1 and S2 present. No murmurs appreciated. Patient is alert and oriented x 3. Patient is hemodynamically stable. Patient will be discharged home with follow up PCP in the next 2-3 days - Diagnoses Provider Diagnoses: Uncontrolled hypertension, Weakness - Physician Notifications Discussed Care Of Patient With: Linda Kothari Time Discussed With Above Provider: 15:00 Instructed by Provider To: Other - Discussed patient case with Dr. Linda Kothari , the patient's PCP, who stated that the amlodipine was started last night and will take time (about a week) for it to normalize in the patient's system. She stated that the patient can be discharged for out-patient follow-up. Discharge ED - Sign-Out/Discharge Documenting (check all that apply): Patient Departure - Discharge Patient Received Moderate/Deep Sedation with Procedure: No - Discharge Plan Condition: Stable Disposition: HOME Patient Education Materials: Weakness (ED), Hypertension (ED) Referrals: Linda Kothari MD [Primary Care Provider] - 3 Days Additional Instructions: FOLLOW UP WITH YOUR PRIMARY CARE PROVIDER WITHIN ONE WEEK. RETURN TO THE ED FOR ANY WORSENING OR NEW SYMPTOMS. - Billing Disposition and Condition Condition: STABLE Disposition: Home - Attestation Statements Document Initiated by Scribe: Yes Documenting Scribe: Vincent Serrano Provider For Whom Shwetaibe is Documenting (Include Credential): Stu Garcia MD Scribe Attestation: IVincent, scribed for Stu Garcia MD on 01/25/19 at 1841. Scribe Documentation Reviewed: Yes Provider Attestation: The documentation as recorded by the Vincent guardado accurately reflects the service I personally performed and the decisions made by me, Stu Garcia MD Status of Scribe Document: Viewed
[2019-01-24 13:20] LABS: ABS Basophils 0.1 10^3/ul (0-0.2); ABS Eosinophils 0.1 10^3/ul (0-0.6); ABS Monocytes 0.6 10^3/ul (0-0.8); ABS Neutrophils 6.1 10^3/ul (1.5-7.7); Hematocrit 40 % (35-47); Hemoglobin 13.7 g/dL (12.0-16.0); Lymphocyte % 22.5 %; Mean Corpuscular HGB Conc 34 g/dL (31-36); Mean Corpuscular Hemoglobin 31 pg (27-31); Mean Corpuscular Volume 91 fL (80-97); Mean Platelet Volume 7.4 fL (7.4-10.4); Platelet Count 263 10^3/uL (150-450); Red Blood Count 4.41 10^6 /uL (3.70-4.87); Red Cell Distribution Width 13 % (10-15); White Blood Count 8.9 10^3/uL (3.5-10.8)
[2019-01-24 13:39] LABS: Albumin 4.3 g/dL (3.2-5.2); Albumin/Globulin Ratio 1.7 (1-3); BUN/Creatinine Ratio 19.5 (8-20); Calcium 9.6 mg/dL (8.6-10.3); EGFR African American 85.4 (>60); EGFR Non-African American 70.6 (>60); Globulin 2.6 g/dL (2-4); Potassium 4.4 mmol/L (3.5-5.0); Total Bilirubin 0.6 mg/dL (0.2-1.0); Total Protein 6.9 g/dL (6.4-8.9)
[2019-01-24 13:57] LABS: TSH (Thyroid Stimulating Horm) 1.8 mcIU/mL (0.34-5.60)
[2019-01-24 14:36] LABS: Urine Appearance Clear; Urine Bilirubin Negative (Negative); Urine Blood Negative (Negative); Urine Color Straw; Urine Glucose Negative (Negative); Urine Ketones Negative (Negative); Urine Nitrite Negative (Negative); Urine Protein Negative (Negative); Urine Specific Gravity 1.009 (1.010-1.030); Urine Urobilinogen Negative (Negative)
[2019-01-24] MEDS ORDERED: amLODIPine TAB* 5 MG PO ONE (16:09)
[2019-01-24 17:13] VITALS: BP 185/96
== END 2019-01-24 16:55 | disposition home or self-care (01) ==
LOC: ED 12:05
DX: I10 Essential (primary) hypertension (principal); R53.1 Weakness; R00.1 Bradycardia, unspecified; I25.2 Old myocardial infarction; E78.00 Pure hypercholesterolemia, unspecified; F03.90 Unspecified dementia, unspecified severity, without behavioral disturbance, psychotic disturbance, mood disturbance, and anxiety; Z95.0 Presence of cardiac pacemaker; Z91.013 Allergy to seafood
CPT/HCPCS: 36415; 70450; 71045; 74019; 80053; 81003; 83605; 83880; 84443; 85025; 93005; 99282; A9270-GY